=== PATIENT | female | born 1965 | race Caucasian/White ===

== ENCOUNTER 2017-12-28 08:27 | Emergency (ER) | payer SELFPAY | END 2017-12-28 11:10 | disposition home or self-care (01) | LOC: D.ER 08:27 | DX: J20.9 Acute bronchitis, unspecified (principal); J06.9 Acute upper respiratory infection, unspecified ==

== ENCOUNTER 2018-07-25 12:11 | Emergency (ER) | payer MEDICAID ==
[~2018-07-25] VITALS: Ht 160 cm; Wt 114.1 kg
[2018-07-25 12:15] VITALS: Ht 160 cm; Wt 114.1 kg
[2018-07-25] MEDS ORDERED: SILVADENE20 GM TP (15:31)
[2018-07-25] MEDS ORDERED: HYDROCODON-ACE1 EAC7 PO (15:31)
[2018-07-25 16:13] VITALS: BP 133/70
== END 2018-07-25 16:00 | disposition home or self-care (01) ==
LOC: D.ER 12:11
DX: T21.22XA Burn of second degree of abdominal wall, initial encounter (principal); T23.211A Burn of second degree of right thumb (nail), initial encounter; T23.131A Burn of first degree of multiple right fingers (nail), not including thumb, initial encounter; X10.2XXA Contact with fats and cooking oils, initial encounter; Y93.G3 Activity, cooking and baking; Y92.010 Kitchen of single-family (private) house as the place of occurrence of the external cause